=== PATIENT | male | born 1965 | race Hispanic/Latino ===

== ENCOUNTER 2021-12-25 12:49 | Emergency (ER) | payer SELFPAY ==
[2021-12-25] MEDS ORDERED: Morphine 4 MG/ML VIAL ONE (13:10)
[2021-12-25 13:15] LABS: #Basophils 0.1 thou/uL (0.0-0.2); #Eosinphils 0.1 thou/uL (0.0-0.7); #Lymphocytes 1.5 thou/uL (1.20-3.40); #Monocytes 0.6 thou/uL (0.11-0.59); %Basophils 1.4 % (0.0-1.0); %Eosinophils 1.6 % (0.0-10.0); %Lymphocytes 23.6 % (21.0-51.0); %Neutrophils 64.5 % (42.0-75.0); Hemoglobin 15.1 g/dL (14.0-18.0); Mean Corpuscular Hemoglobin 29.2 pg (27.0-31.0); Mean Corpuscular Volume 88.6 fL (78.0-98.0); Mean Platelet Volume 10.8 fL (7.4-10.4); Platelet Count 112 thou/uL (130-400); RBC Distribution Width 12.2 % (11.5-14.5); Red Blood Cell (RBC) Count 5.15 mill/uL (4.70-6.10); White Blood Cell (WBC) Count 6.1 thou/uL (4.8-10.8)
[2021-12-25 13:25] LABS: Albumin 4.3 g/dL (3.5-5.0); Anion Gap 14 mmol/L (10-20); BUN (Urea Nitrogen) 7 mg/dL (8.4-25.7); Bilirubin, Total 1.2 mg/dL (0.2-1.2); Calc. Creatinine Clearance 0 mL/min (70-130); Calcium 9.4 mg/dL (7.8-10.44); Carbon Dioxide 23 mmol/L (22-29); Chloride 110 mmol/L (98-107); Estimated GFR 105; Glucose 123 mg/dL (70-105); Potassium 3.9 mmol/L (3.5-5.1); Protein, Total 7.7 g/dL (6.0-8.3); Sodium 143 mmol/L (136-145)
[2021-12-25 13:26] LABS: ALT (SGPT) 93 U/L (8-55); AST (SGOT) 100 U/L (5-34); Alkaline Phosphatase 165 U/L (40-110); CK (CPK) 53 U/L (30-200); Globulin 3.4 g/dL (2.4-3.5)
[2021-12-25 14:00] LABS: Platelet Morphology Comment Appears Decreased
[2021-12-25] MEDS ORDERED: Boostrix 0.5 ML (Tdap) VIAL ONE (14:10)
== END 2021-12-25 14:30 | disposition home or self-care (01) ==
LOC: MADERS 12:49
DX: S82.842A Displaced bimalleolar fracture of left lower leg, initial encounter for closed fracture (principal); I10 Essential (primary) hypertension; X58.XXXA Exposure to other specified factors, initial encounter
CPT/HCPCS: 29515; 80053; 82550; 85025; 90471; 90715; 96374; J2270